=== PATIENT | female | born 1980 | race Caucasian/White ===

== ENCOUNTER 2023-03-20 21:20 | Emergency (ER) | payer OTHER ==
[~2023-03-20] VITALS: Ht 175.3 cm; Wt 81.0 kg
[2023-03-20 21:28] VITALS: TEMP 98.1
[2023-03-20] MEDS ORDERED: oxyCODONE/APAP 10/325mg tablet PO ONE (21:45)
[2023-03-21] MEDS ORDERED: HYDROmorphone 1 mg/ml syringe IV ONE (00:35)
[2023-03-21] MEDS ORDERED: propofol 10mg/ml 20ml vial IV STA (01:02)
[2023-03-21] MEDS ORDERED: OXYC-150 PO (01:28)
[2023-03-21 02:04] VITALS: BP 105/64; PULSE 89; RESP 18; O2SAT 96
== END 2023-03-21 02:08 | disposition home or self-care (01) ==
LOC: ER 21:21
DX: S82.832A Other fracture of upper and lower end of left fibula, initial encounter for closed fracture (principal); Z79.899 Other long term (current) drug therapy; W19.XXXA Unspecified fall, initial encounter; Y93.89 Activity, other specified; Y92.89 Other specified places as the place of occurrence of the external cause; Y99.8 Other external cause status
CPT/HCPCS: 27788; 73600; 73610; 96374; 99284; J1170; A6449